=== PATIENT | male | born 1975 | race Caucasian/White ===

== ENCOUNTER → 2016-10-16 | Outpatient (CLI) | payer BC ==
[2016-10-16 09:25] LABS: CH 30.4; CHCM 34.4; HDW 2.98; HGB 17.9 gm/dL (13.0-17.5); MCH 29.5 pg (25.0-35.0); MCHC 33.1 g/dL (31.0-37.0); Mean Platelet Volume 7.5; RBC 6.07 m/uL (4.30-5.90); RDW 13.7 % (11.5-15.5); WBC 7.5 k/uL (3.8-10.6)
[2016-10-16 10:38] LABS: ALT 92 U/L (21-72); AST 46 U/L (17-59); Alkaline Phosphatase 50 U/L (38-126); Anion Gap 11 mmol/L; Blood Urea Nitrogen 20 mg/dL (9-20); Calcium 9.4 mg/dL (8.4-10.2); Carbon Dioxide 25 mmol/L (22-30); Chloride 102 mmol/L (98-107); Cholesterol 207 mg/dL (<200); Glucose 138 mg/dL (74-99); HDL Cholesterol 33 mg/dL (40-60); Non-African American GFR(MDRD) >60 (>60 ml/min/1.73 sqM); Potassium 4.9 mmol/L (3.5-5.1); Sodium 138 mmol/L (137-145); Total Bilirubin 0.6 mg/dL (0.2-1.3); Total Protein 6.8 g/dL (6.3-8.2); Triglycerides 225 mg/dL (<150)
[2016-10-16 11:09] LABS: Prostate Specific Antigen 1.46 ng/mL (0.00-4.00)
== END | disposition home or self-care (01) ==
LOC: LABWHC1 08:05
PROVIDERS: ATTEND Internal Medicine Endocrinology, Diabetes & Metabolism
DX: E11.65 Type 2 diabetes mellitus with hyperglycemia (principal); E29.1 Testicular hypofunction
CPT/HCPCS: 36415; 80053; 80061; 82043; 84153; 84403; 85027

== ENCOUNTER → 2017-03-24 | Outpatient (CLI) | payer BC ==
[2017-03-24 08:43] LABS: ALT 100 U/L (21-72); AST 43 U/L (17-59); Alkaline Phosphatase 53 U/L (38-126); Anion Gap 8 mmol/L; Blood Urea Nitrogen 15 mg/dL (9-20); Calcium 9.2 mg/dL (8.4-10.2); Carbon Dioxide 30 mmol/L (22-30); Chloride 101 mmol/L (98-107); Cholesterol 210 mg/dL (<200); Glucose 188 mg/dL (74-99); HDL Cholesterol 37 mg/dL (40-60); Non-African American GFR(MDRD) >60 (>60 ml/min/1.73 sqM); Potassium 4.7 mmol/L (3.5-5.1); Sodium 139 mmol/L (137-145); Total Bilirubin 0.8 mg/dL (0.2-1.3); Total Protein 6.8 g/dL (6.3-8.2); Triglycerides 240 mg/dL (<150)
== END | disposition home or self-care (01) ==
LOC: LABWHC1 08:01
PROVIDERS: ATTEND Internal Medicine Endocrinology, Diabetes & Metabolism
DX: E11.65 Type 2 diabetes mellitus with hyperglycemia (principal)
CPT/HCPCS: 36415; 80053; 80061

== ENCOUNTER → 2017-09-25 | Outpatient (CLI) | payer BC ==
[2017-09-25 09:26] LABS: ALT 113 U/L (21-72); AST 40 U/L (17-59); Albumin 4.3 g/dL (3.5-5.0); Alkaline Phosphatase 56 U/L (38-126); Anion Gap 10 mmol/L; Blood Urea Nitrogen 21 mg/dL (9-20); Calcium 9.8 mg/dL (8.4-10.2); Carbon Dioxide 32 mmol/L (22-30); Chloride 97 mmol/L (98-107); Cholesterol 185 mg/dL (<200); Glucose 296 mg/dL (74-99); HCT 51.8 % (39.0-53.0); HDL Cholesterol 29 mg/dL (40-60); HGB 17.3 gm/dL (13.0-17.5); LDL Cholesterol,Calculated 103 mg/dL (0-99); MCH 29.8 pg (25.0-35.0); MCHC 33.3 g/dL (31.0-37.0); MCV 89.5 fL (80.0-100.0); Mean Platelet Volume 7.1; Platelet Count 290 k/uL (150-450); Potassium 5.6 mmol/L (3.5-5.1); RBC 5.78 m/uL (4.30-5.90); RDW 13.8 % (11.5-15.5); Sodium 139 mmol/L (137-145); Total Bilirubin 0.6 mg/dL (0.2-1.3); Total Protein 6.8 g/dL (6.3-8.2); Triglycerides 267 mg/dL (<150); WBC 6.3 k/uL (3.8-10.6)
== END | disposition home or self-care (01) ==
LOC: LABWHC1 08:41
PROVIDERS: ATTEND Internal Medicine Endocrinology, Diabetes & Metabolism
DX: E11.65 Type 2 diabetes mellitus with hyperglycemia (principal); E29.1 Testicular hypofunction
CPT/HCPCS: 36415; 80053; 80061; 82043; 82570; 84153; 85027

== ENCOUNTER → 2018-07-13 | Outpatient (CLI) | payer BC ==
[2018-07-13 10:01] LABS: HCT 52.4 % (39.0-53.0); HGB 17.8 gm/dL (13.0-17.5); MCH 30.3 pg (25.0-35.0); MCHC 33.9 g/dL (31.0-37.0); MCV 89.2 fL (80.0-100.0); Mean Platelet Volume 6.8; Platelet Count 312 k/uL (150-450); RBC 5.87 m/uL (4.30-5.90); RDW 14.5 % (11.5-15.5); WBC 6.6 k/uL (3.8-10.6)
[2018-07-13 18:11] LABS: ALT 64 U/L (10-49); AST 36 U/L (14-35); Albumin/Globulin Ratio 2.24 (1.20-2.10); Alkaline Phosphatase 57 U/L (41-126); Calcium 9.7 mg/dL (8.7-10.3); Carbon Dioxide 26.7 mmol/L (21.6-31.8); Chloride 98 mmol/L (96-109); Cholesterol 300 mg/dL (0-200); Globulin 2.1 g/dL (2.1-3.7); Glucose 234 mg/dL (70-110); Sodium 137 mmol/L (135-145); Total Bilirubin 0.5 mg/dL (0.3-1.2); Total Protein 6.8 g/dL (6.2-8.2)
[2018-07-13 20:33] LABS: Hemoglobin A1C 14.6 % (4.0-6.0)
== END ==
LOC: LABWHC1 08:34
PROVIDERS: ATTEND Internal Medicine Endocrinology, Diabetes & Metabolism
DX: E11.65 Type 2 diabetes mellitus with hyperglycemia (principal); E29.1 Testicular hypofunction
CPT/HCPCS: 36415; 80053; 80061; 82043; 82570; 83036; 83721; 84403; 85027

== ENCOUNTER 2018-09-14 13:04 | Observation (INO) | payer BC ==
[2018-09-14] MEDS ORDERED: ASPIRIN 81 MG PO STA (13:14)
[2018-09-14] MEDS ORDERED: NITROGLYCERIN SL TABS 0.4 MG TAB SUBLINGUAL STA (13:31)
--- NOTE | 2018-09-14 13:32 | ED ---
Chest Pain HPI - General Chief Complaint: Chest Pain Stated Complaint: Chest pain,tightness. Arm tingling Time Seen by Provider: 09/14/18 13:14 Source: patient, RN notes reviewed Mode of arrival: wheelchair Limitations: no limitations - History of Present Illness Initial Comments: 43-year-old male presents emergency Department chief complaint chest pain. Patient states this started just prior arrival. Patient states the pain is in the central to left-sided and radiates down his left arm with tingling. Patient states that he is a diabetic, has history of hyperlipidemia, low testosterone, depression. Patient states he felt short of breath and the pain started but he does not feel short breath at this time. Denies any back pain, headache or dizziness. Patient states she had symptoms like this in the past in which she's had elevated troponins. Patient states that he may have had a stress test a few years ago but no prior cardiac cath. - Related Data Home Medications Medication Instructions Recorded Confirmed Desvenlafaxine Succinate [Pristiq 100 mg PO DAILY 04/13/15 09/14/18 ER] Gabapentin [Neurontin] 300 mg PO HS 04/13/15 09/14/18 Testosterone Cypionate 200 mg IM Q14D 04/13/15 09/14/18 [Depo-Testosterone] Atorvastatin [Lipitor] 40 mg PO DAILY 09/14/18 09/14/18 Dapagliflozin Propanediol [Farxiga] 10 mg PO DAILY 09/14/18 09/14/18 Insulin Glargine,Hum.rec.anlog 20 units SQ DAILY 09/14/18 09/14/18 [Touluiso Solsajiar] Lisdexamfetamine Dimesylate 50 mg PO QAM 09/14/18 09/14/18 [Vyvanse] Pramipexole [Mirapex] 0.5 mg PO TID 09/14/18 09/14/18 lamoTRIgine [LaMICtal] 200 mg PO DAILY 09/14/18 09/14/18 sitaGLIPtin PHOS/metFORMIN HCL 1 tab PO BID 09/14/18 09/14/18 [Janumet 50-1,000 mg Tablet] Allergies Allergy/AdvReac Type Severity Reaction Status Date / Time No Known Allergies Allergy Verified 09/14/18 13:43 Review of Systems ROS Statement: Those systems with pertinent positive or pertinent negative responses have been documented in the HPI. ROS Other: All systems not noted in ROS Statement are negative. EKG Findings - EKG Comments: EKG Findings:: EKG performed at 13:19 sinus tachycardia with rate 113 VT 124 QRS 98 QT/QTC 340/466 Past Medical History Past Medical History: Diabetes Mellitus, Hyperlipidemia Additional Past Medical History / Comment(s): RLS; Low testosterone, restless leg syndrome History of Any Multi-Drug Resistant Organisms: None Reported Past Surgical History: Orthopedic Surgery Past Psychological History: Anxiety, Depression Smoking Status: Never smoker Past Alcohol Use History: Occasional Past Drug Use History: None Reported General Exam Limitations: no limitations General appearance: alert, in no apparent distress Head exam: Present: atraumatic, normocephalic, normal inspection Neck exam: Present: normal inspection. Absent: tenderness, meningismus, lymphadenopathy Respiratory exam: Present: normal lung sounds bilaterally. Absent: respiratory distress, wheezes, rales, rhonchi, stridor Cardiovascular Exam: Present: normal rhythm, tachycardia, normal heart sounds. Absent: systolic murmur, diastolic murmur, rubs, gallop, clicks GI/Abdominal exam: Present: soft, normal bowel sounds. Absent: distended, tenderness, guarding, rebound, rigid Course Vital Signs 09/14/18 09/14/18 13:10 14:55 Temperature 98 F Pulse Rate 116 H 109 H Respiratory 18 20 Rate Blood Pressure 143/83 129/80 O2 Sat by Pulse 98 98 Oximetry Chest Pain MDM - MDM 43-year-old male presented for chest pain. Initial troponin is negative EKG does not show an acute changes patient has multiple risk factors including hyperlipidemia, uncontrolled diabetes, family heart history. Patient will be admitted for repeat cardiac enzymes, cardiology evaluation Disposition Clinical Impression: Chest pain Disposition: ADMITTED IP TO THIS HOSP Condition: Fair Referrals: Viky Huerta MD [Primary Care Provider] - 1-2 days
[2018-09-14 14:03] LABS: Basophils # (A) 0.1 k/uL (0-0.2); Basophils % (A) 1 %; Eosinophils # (A) 0.1 k/uL (0-0.7); Eosinophils % (A) 2 %; HCT 49.5 % (39.0-53.0); HGB 16.5 gm/dL (13.0-17.5); Lymphocytes # (A) 1.7 k/uL (1.0-4.8); Lymphocytes % (A) 25 %; MCH 29.9 pg (25.0-35.0); MCHC 33.3 g/dL (31.0-37.0); MCV 89.7 fL (80.0-100.0); Mean Platelet Volume 6.9; Monocytes # (A) 0.3 k/uL (0-1.0); Monocytes % (A) 4 %; Neutrophils # (A) 4.7 k/uL (1.3-7.7); Neutrophils % (A) 66 %; Platelet Count 305 k/uL (150-450); RBC 5.52 m/uL (4.30-5.90)
[2018-09-14 14:10] LABS: INR 0.9 (<1.2); Partial Thromboplastin Time 22.2 sec (22.0-30.0); Prothrombin Time 9.6 sec (9.0-12.0)
[2018-09-14 14:13] LABS: ALT 57 U/L (21-72); AST 27 U/L (17-59); Albumin 4.2 g/dL (3.5-5.0); Alkaline Phosphatase 61 U/L (38-126); Anion Gap 13 mmol/L; Blood Urea Nitrogen 19 mg/dL (9-20); Calcium 9.7 mg/dL (8.4-10.2); Carbon Dioxide 23 mmol/L (22-30); Chloride 102 mmol/L (98-107); Glucose 343 mg/dL (74-99); Potassium 4.6 mmol/L (3.5-5.1); Sodium 138 mmol/L (137-145); Total Bilirubin 0.6 mg/dL (0.2-1.3)
[2018-09-14 14:27] LABS: Creatine Kinase 146 U/L (55-170)
--- NOTE | 2018-09-14 14:29 | XR ---
EXAMINATION TYPE: XR chest 2V DATE OF EXAM: 09/14/2018 COMPARISON: NONE HISTORY: Chest pain down both arms. TECHNIQUE: Frontal and lateral views of the chest are obtained. FINDINGS: There is no focal air space opacity, pleural effusion, or pneumothorax seen. The cardiac silhouette size is within normal limits. The osseous structures are intact. IMPRESSION: No acute process.
[2018-09-14 14:39] LABS: Creatine Kinase MB 2.2 ng/mL (0.0-2.4); Troponin I <0.012 ng/mL (0.000-0.034)
[2018-09-14] MEDS ORDERED: NITROGLYCERIN SL TABS 0.4 MG TAB SUBLINGUAL PRN (15:13)
[2018-09-14] MEDS ORDERED: HEPARIN SODIUM,PORCINE 5,000 UNIT/ML 1 ML VIAL IV ONE (15:13)
[2018-09-14] MEDS ORDERED: HEPARIN SOD,PORK IN 0.45% NACL 25,000 UNIT in 0.45% NACL 1 250ML.BAG IV SCH (15:15)
[2018-09-14] MEDS ORDERED: ACETAMINOPHEN TAB 325 MG TAB PO PRN (15:48)
[2018-09-14] MEDS ORDERED: NALOXONE 0.4 MG/ML 1 ML VIAL IV PRN (15:48)
[2018-09-14] MEDS ORDERED: MORPHINE SULFATE 2 MG/ML SYRINGE IV PRN (15:48)
[2018-09-14 16:15] VITALS: BMI 30.1
--- NOTE | 2018-09-14 16:26 | P.HPIM ---
History of Present Illness H&P Date: 09/14/18 Chief Complaint: Chest pain 43-year-old male with PMH of Alpnf-Dbekfczdn-Frtmz status post ablation at 16, hypertension, uncontrolled diabetes mellitus, hyperlipidemia, low testosterone, restless leg syndrome, anxiety and depression presents the ED for chest pain. Patient states that the chest pain started around 12:30 PM as he was sitting at his desk watching TV. Pain was left-sided and intermittent, lasting for a few minutes at a time. Pain is 10 out of 10 in severity. Patient describes the pain as sharp and stabbing in nature. Patient reported that the pain radiated to the left arm which led to some tingling in his left fingers. He denies any alleviating or aggravating factors. Patient denies any headaches, lower extremity edema, nausea, vomiting, fever, cough, changes in urination or bowel habits. No changes in appetite or weight. Patient does however endorse palpitations and shortness of breath that started with his chest pain. Patient reports previous incidents in 2016, initially found to have elevated troponin which normalized on repeat blood draw, he was told that this was related to his anxiety. 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 Patient reports uncontrolled diabetes, A1c greater than 11 at his [facility] clinic, recently started on insulin. Patient also reports recently being started on Lipitor as his lipid panel was extremely elevated. Patient also reports an impressive family history of early cardiac disease, MIs in the 50s on his mother's side. In the ED, CBC and CMP were unremarkable except for a glucose of 343. Initial troponin was less than 0.012, EKG showing sinus tachycardia. Patient is admitted for chest pain, rule out acute coronary syndrome. He started on heparin drip with cardiology on consult. Review of Systems All systems: negative Past Medical History Past Medical History: Diabetes Mellitus, Hyperlipidemia Additional Past Medical History / Comment(s): RLS; Low testosterone, restless leg syndrome History of Any Multi-Drug Resistant Organisms: None Reported Past Surgical History: Orthopedic Surgery Past Psychological History: Anxiety, Depression Smoking Status: Never smoker Past Alcohol Use History: Occasional Past Drug Use History: None Reported Medications and Allergies Home Medications Medication Instructions Recorded Confirmed Type Desvenlafaxine Succinate [Pristiq 100 mg PO DAILY 04/13/15 09/14/18 History ER] Gabapentin [Neurontin] 300 mg PO HS 04/13/15 09/14/18 History Testosterone Cypionate 200 mg IM Q14D 04/13/15 09/14/18 History [Depo-Testosterone] Atorvastatin [Lipitor] 40 mg PO DAILY 09/14/18 09/14/18 History Dapagliflozin Propanediol [Farxiga] 10 mg PO DAILY 09/14/18 09/14/18 History Insulin Glargine,Hum.rec.anlog 20 units SQ DAILY 09/14/18 09/14/18 History [Toujeo Solostar] Lisdexamfetamine Dimesylate 50 mg PO QAM 09/14/18 09/14/18 History [Vyvanse] Pramipexole [Mirapex] 0.5 mg PO TID 09/14/18 09/14/18 History lamoTRIgine [LaMICtal] 200 mg PO DAILY 09/14/18 09/14/18 History sitaGLIPtin PHOS/metFORMIN HCL 1 tab PO BID 09/14/18 09/14/18 History [Janumet 50-1,000 mg Tablet] Allergies Allergy/AdvReac Type Severity Reaction Status Date / Time No Known Allergies Allergy Verified 09/14/18 13:43 Physical Exam Vitals: Vital Signs Temp Pulse Resp BP Pulse Ox 09/14/18 15:00 105 H 11 L 129/80 96 09/14/18 14:55 109 H 20 129/80 98 09/14/18 14:00 112 H 15 96 09/14/18 13:21 113 H 12 97 09/14/18 13:10 98 F 116 H 18 143/83 98 Intake and Output 09/14/18 09/14/18 09/14/18 06:59 14:59 22:59 Other: Weight 97.522 kg General: [non toxic], [no distress], [appears at stated age] Derm: [warm], [dry] Head: [atraumatic], [normocephalic], [symmetric] Eyes: [EOMI], [no lid lag], [anicteric sclera] Mouth: [no lip lesion], [mucus membranes moist] Cardiovascular: [S1S2 reg], [tachycardia], [positive DP pulse bilateral] Lungs: [CTA bilateral], [no rhonchi, no rales] , [no accessory muscle use] Abdominal: [soft], [ nontender to palpation], [no guarding], [no appreciable organomegaly] Ext: [no gross muscle atrophy], [no edema], [no contractures] Neuro: [no focal neuro deficits] Psych: [Alert], [oriented], [appropriate affect] Results CBC & Chem 7: 09/14/18 13:55 09/14/18 13:55 Labs: Abnormal Lab Results - Last 24 Hours (Table) 09/14/18 Range/Units 13:55 Glucose 343 H (74-99) mg/dL Thrombosis Risk Factor Assmnt - Choose All That Apply Any of the Below Risk Factors Present?: Yes Each Factor Represents 1 point: Age 41-60 years Thrombosis Risk Factor Assessment Total Risk Factor Score: 1 Thrombosis Risk Factor Assessment Level: Low Risk Assessment and Plan Assessment: Assessment and Plan 1. Chest pain: Concerns for ACS with risk factors. Patient is afebrile with no leukocytosis.. Troponin < 0.012 x 1, EKG showing sinus tachycardia. CXR is negative. Pain management with Tylenol, Nitrostat PRN and Morphine 2 mg IV Q4H PRN for breakthrough. Start ASA 325 mg PO QD. Trend 2 Trop/EKG to r/o ACS. Heparin drip pending Cardiology evaluation. Telemetry monitoring. FU Echocardiogram, Cardiology consult 2. Diabetes Mellitus: POC glucose 343. Start Levemir 20 units QHS, ISS. Hypoglycemic precautions. Accuchecks with meals. 3. Hyperlipidemia: Continue ASA 325 mg PO QD and Lipitor 40 mg PO QHS. HEART healthy diet. FU Lipid panel 4. Restless leg syndrome: Stable. Continue Pramipexole 0.5 mg PO TID. 5. Low testosterone: Stable. Continue testosterone biweekly injections. 6. Depression: Stable. Continue Pristiq ER 100 mg PO QD. 7. DVT/GI Prophylaxis: Heparin drip.
[2018-09-14 16:33] LABS: Glucose,Whole Blood 209 mg/dL (75-99)
[2018-09-14] MEDS: PRAMIPEXOLE 0.5 MG TAB PO SCH ×2 (16:37→21:12)
[2018-09-14] MEDS: INSULIN ASPART 100 UNIT/ML 1 ML 10 ML VIAL SQ SCH (16:50)
[2018-09-14] MEDS ORDERED: INSULIN ASPART 100 UNIT/ML 1 ML 10 ML VIAL SQ SCH (17:30)
[2018-09-14 19:55] LABS: Creatine Kinase 107 U/L (55-170)
[2018-09-14 20:09] LABS: Creatine Kinase MB 1.5 ng/mL (0.0-2.4); Troponin I <0.012 ng/mL (0.000-0.034)
[2018-09-14 21:00] LABS: Glucose,Whole Blood 306 mg/dL (75-99)
[2018-09-14] MEDS ORDERED: GABAPENTIN 300 MG CAP PO SCH (21:00)
[2018-09-14] MEDS ORDERED: INSULIN DETEMIR 100 UNIT/ML 10 ML VIAL SQ SCH (21:00)
[2018-09-14] MEDS: HEPARIN SODIUM,PORCINE 5,000 UNIT/ML 1 ML VIAL IV PRN (21:43)
[2018-09-15 03:13] LABS: Cholesterol 148 mg/dL (<200); HDL Cholesterol 33 mg/dL (40-60); LDL Cholesterol,Calculated 74 mg/dL (0-99); Triglycerides 206 mg/dL (<150)
[2018-09-15 03:24] LABS: Creatine Kinase 106 U/L (55-170)
[2018-09-15] MEDS: HEPARIN SODIUM,PORCINE 5,000 UNIT/ML 1 ML VIAL IV PRN (03:24)
[2018-09-15 03:37] LABS: Creatine Kinase MB 1.4 ng/mL (0.0-2.4); Troponin I <0.012 ng/mL (0.000-0.034)
[2018-09-15 06:39] LABS: Glucose,Whole Blood 166 mg/dL (75-99)
[2018-09-15] MEDS: INSULIN ASPART 100 UNIT/ML 1 ML 10 ML VIAL SQ SCH ×3 (08:40→17:28)
[2018-09-15] MEDS ORDERED: ATORVASTATIN 40 MG TAB PO SCH (09:00)
[2018-09-15] MEDS ORDERED: DESVENLAFAXINE SUCCINATE 50 MG TAB.ER.24H PO SCH (09:00)
[2018-09-15] MEDS ORDERED: lamoTRIgine 100 MG TAB PO SCH (09:00)
[2018-09-15] MEDS ORDERED: ASPIRIN 325 MG TAB PO SCH (09:00)
--- NOTE | 2018-09-15 09:51 | P.CRDCN ---
History of Present Illness History of present illness: This is a pleasant 43-year-old male past medical history significant for Ymwqw-Lhunqjqps-Nigtz syndrome status post ablation, diabetes mellitus and dyslipidemia. He denies history of coronary artery disease. 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 We have been asked to see him in consultation for chest discomfort. He states while sitting at his desk yesterday he developed a heavy sensation in the left precordial region with radiation to the left arm and hand. He states he felt tingling in his fingers. He also had mild shortness of breath. No radiation to the back, neck or jaw. He denies dizziness, palpitations, nausea, vomiting or diaphoresis. The symptoms persisted for a couple of minutes and ultimately subsided on her own. Upon arrival to the emergency department he still felt a dull ache in the chest. He was given sublingual nitroglycerin and his discomfort is completely subsided. There is been no return of chest discomfort since admission to the hospital. He states he underwent an ablation for Mydfm-Nojsbspgt-Hbcwy he was 16 years old. He also states he is under a significant amount of stress at work with fear of losing his job as well as having significant financial trouble at home. EKG reveals sinus mechanism with no acute ST or T wave abnormalities noted. Chest x-ray is negative for acute cardiopulmonary process. Laboratory data reviewed, WBC 7, hemoglobin 16.5, platelets 305, sodium 138, potassium 4.6, creatinine 0.72, magnesium 2.0, cardiac enzymes negative 3, LDL 74 and HDL 33. Current cardiac medications include atorvastatin 40 mg daily. He has a negative stress test performed in 2015. At the time of my exam: CONSTITUTIONAL: Denies fever. Denies chills. EYES: Denies blurred vision. Denies vision changes. Denies eye pain. EARS, NOSE, MOUTH & THROAT: Denies headache. Denies sore throat. Denies ear pain. CARDIOVASCULAR: Denies chest pain. Denies shortness of breath. Denies orthopnea. Denies PND. Denies palpitations. RESPIRATORY: Denies cough. GASTROINTESTINAL: Denies abdominal pain. Denies diarrhea. Denies constipation. Denies nausea. Denies vomiting. MUSCULOSKELETAL: Denies myalgias. INTEGUMENTARY: Denies pruitis. Denies rash. NEUROLOGIC: Denies numbness. Denies tingling. Denies weakness. PSYCHIATRIC: Denies anxiety. Denies depression. ENDOCRINE: Denies fatigue. Denies weight change. Denies polydipsia. Denies polyurina. GENITOURINARY: Denies burning, hematuria or urgency with micturation. HEMATOLOGIC: Denies history of anemia. Denies bleeding. Blood pressure 111/72 heart rate 89 afebrile maintaining oxygen saturation on room air GENERAL: This is a 43-year-old male in no apparent distress at the time of my examination. HEENT: Head is atraumatic, normocephalic. Pupils are equal, round. Sclerae anicteric. Conjunctivae are clear. Mucous membranes of the mouth are moist. Neck is supple. There is no jugular venous distention. No carotid bruit is heard. LUNGS: Clear to auscultation no wheezes, rales or rhonchi. No chest wall tenderness is noted on palpation or with deep breathing. HEART: Regular rate and rhythm without murmurs, rubs or gallops. S1 and S2 heard. ABDOMEN: Soft, nontender. Bowel sounds are heard. No organomegaly noted. EXTREMITIES: No evidence of peripheral edema and no calf tenderness noted. VASCULAR: Radial and dorsalis pedis pulses palpated, no evidence of clubbing. NEUROLOGIC: Patient is awake, alert and oriented x3. ASSESSMENT Precordial chest pain, atypical. An acute coronary event has been ruled out with no EKG evidence of ischemia and negative cardiac enzymes. Dyslipidemia, controlled on atorvastatin Diabetes mellitus Obesity, BMI 30 PLAN An acute coronary event has been ruled out with no EKG evidence of ischemia and negative cardiac enzymes. Discontinue heparin infusion and Nitropaste. Obtain 2-D echocardiogram and Doppler study to assess cardiac structure and function. Perform stress echocardiogram to assess for stress-induced cardiac ischemia. If stress test is normal he is stable from a cardiac perspective. Follow-up with Dr. King in 2-3 weeks. Recommend lifestyle modifications such as diet and exercise for weight loss. Thank you kindly for this consultation. Nurse Practitioner note has been reviewed, I agree with a documented findings and plan of care. Patient was seen and examined. Past Medical History Past Medical History: Diabetes Mellitus, Hyperlipidemia Additional Past Medical History / Comment(s): RLS; Low testosterone, restless leg syndrome History of Any Multi-Drug Resistant Organisms: None Reported Past Surgical History: Orthopedic Surgery Past Psychological History: Anxiety, Depression Smoking Status: Never smoker Past Alcohol Use History: Occasional Past Drug Use History: None Reported Medications and Allergies Home Medications Medication Instructions Recorded Confirmed Type Desvenlafaxine Succinate [Pristiq 100 mg PO DAILY 04/13/15 09/14/18 History ER] Gabapentin [Neurontin] 300 mg PO HS 04/13/15 09/14/18 History Testosterone Cypionate 200 mg IM Q14D 04/13/15 09/14/18 History [Depo-Testosterone] Atorvastatin [Lipitor] 40 mg PO DAILY 09/14/18 09/14/18 History Dapagliflozin Propanediol [Farxiga] 10 mg PO DAILY 09/14/18 09/14/18 History Insulin Glargine,Hum.rec.anlog 20 units SQ DAILY 09/14/18 09/14/18 History [Toujeo Solostar] Lisdexamfetamine Dimesylate 50 mg PO QAM 09/14/18 09/14/18 History [Vyvanse] Pramipexole [Mirapex] 0.5 mg PO TID 09/14/18 09/14/18 History lamoTRIgine [LaMICtal] 200 mg PO DAILY 09/14/18 09/14/18 History sitaGLIPtin PHOS/metFORMIN HCL 1 tab PO BID 09/14/18 09/14/18 History [Janumet 50-1,000 mg Tablet] Allergies Allergy/AdvReac Type Severity Reaction Status Date / Time No Known Allergies Allergy Verified 09/14/18 13:43 Physical Exam Vitals: Vital Signs Temp Pulse Pulse Resp BP BP Pulse Ox 09/15/18 07:10 97.6 F 89 18 111/72 97 09/15/18 04:00 98.3 F 83 18 110/70 99 09/14/18 23:48 82 18 09/14/18 23:06 98.2 F 82 18 113/71 95 09/14/18 19:29 98.2 F 98 18 119/78 97 09/14/18 19:20 95 18 09/14/18 16:15 98.5 F 95 18 128/92 97 09/14/18 15:00 105 H 11 L 129/80 96 09/14/18 14:55 109 H 20 129/80 98 09/14/18 14:00 112 H 15 96 09/14/18 13:21 113 H 12 97 09/14/18 13:10 98 F 116 H 18 143/83 98 Intake and Output 09/14/18 09/15/18 09/15/18 22:59 06:59 14:59 Intake Total 872.5 74.994 Balance 872.5 74.994 Intake: Intake, IV Titration 50.5 74.994 Amount Heparin Sod,Pork in 0.45% 50.5 74.994 NaCl 25,000 unit In 0.45 % NaCl 1 250ml.bag @ 10. 26 UNITS/KG/HR 10 mls/hr IV .Q24H [facility] Rx#: [id number] Oral 822 Other: # Voids 1 Weight 92.624 kg Results 09/14/18 13:55 09/14/18 13:55 Cardiac Enzymes 09/14/18 09/14/18 09/14/18 Range/Units 13:55 13:55 19:20 AST 27 (17-59) U/L CK-MB (CK-2) 2.2 1.5 (0.0-2.4) ng/mL Troponin I <0.012 <0.012 (0.000-0.034) ng/mL 09/15/18 Range/Units 02:36 AST (17-59) U/L CK-MB (CK-2) 1.4 (0.0-2.4) ng/mL Troponin I <0.012 (0.000-0.034) ng/mL Coagulation 09/14/18 09/14/18 09/15/18 Range/Units 13:55 19:20 02:36 PT 9.6 (9.0-12.0) sec APTT 22.2 26.7 39.9 H (22.0-30.0) sec Lipids 09/15/18 Range/Units 02:36 Triglycerides 206 H (<150) mg/dL Cholesterol 148 (<200) mg/dL HDL Cholesterol 33 L (40-60) mg/dL CBC 09/14/18 Range/Units 13:55 WBC 7.0 (3.8-10.6) k/uL RBC 5.52 (4.30-5.90) m/uL Hgb 16.5 (13.0-17.5) gm/dL Hct 49.5 (39.0-53.0) % Plt Count 305 (150-450) k/uL Comprehensive Metabolic Panel 09/14/18 Range/Units 13:55 Sodium 138 (137-145) mmol/L Potassium 4.6 (3.5-5.1) mmol/L Chloride 102 (98-107) mmol/L Carbon Dioxide 23 (22-30) mmol/L BUN 19 (9-20) mg/dL Creatinine 0.72 (0.66-1.25) mg/dL Glucose 343 H (74-99) mg/dL Calcium 9.7 (8.4-10.2) mg/dL AST 27 (17-59) U/L ALT 57 (21-72) U/L Alkaline Phosphatase 61 (38-126) U/L Total Protein 7.0 (6.3-8.2) g/dL Albumin 4.2 (3.5-5.0) g/dL Current Medications Generic Name Dose Route Start Last Admin Trade Name Freq PRN Reason Stop Dose Admin Acetaminophen 650 mg 09/14/18 15:48 Tylenol Tab PO Q6HR PRN Mild Pain or Fever > 100.5 Aspirin 325 mg 09/15/18 09:00 Aspirin PO DAILY [facility] Atorvastatin Calcium 40 mg 09/15/18 09:00 Lipitor PO DAILY [facility] Desvenlafaxine Succinate 100 mg 09/15/18 09:00 Pristiq Er PO DAILY [facility] Gabapentin 300 mg 09/14/18 21:00 09/14/18 21:11 Neurontin PO 300 mg HS JOSE Administration Heparin Sodium (Porcine) 0 unit 09/14/18 21:35 09/15/18 03:24 Heparin IV 4,000 unit PER PROTOCOL PRN Administration Low PTT Protocol Heparin Sodium/Sodium Chloride 250 mls @ 10 mls/hr 09/14/18 15:15 09/15/18 03 :24 25,000 unit/ Sodium Chloride IV 16.26 units/kg/hr .Q24H [facility] 15.85 mls/hr Titration Protocol 10.26 UNITS/KG/HR Insulin Aspart 0 unit 09/14/18 17:30 09/14/18 16:50 Novolog SQ 3 unit AC-TID JOSE Administration Protocol Insulin Detemir 20 unit 09/14/18 21:00 09/14/18 21:12 Levemir SQ 20 unit HS JOSE Administration Lamotrigine 200 mg 09/15/18 09:00 Lamictal PO DAILY [facility]SE Morphine Sulfate 2 mg 09/14/18 15:48 Morphine Sulfate (Inj) IV Q4HR PRN Severe Pain Naloxone HCl 0.2 mg 09/14/18 15:48 Narcan IV Q2M PRN Opioid Reversal Nitroglycerin 0.4 mg 09/14/18 15:13 Nitrostat SUBLINGUAL Q5M PRN Chest Pain Lisdexamfetamine 50 mg 09/15/18 09:00 Dimesylate [Vyvanse] PO QAM [facility] Pramipexole Dihydrochloride 0.5 mg 09/14/18 16:00 09/14/18 21:12 Mirapex PO 0.5 mg TID JOSE Administration Intake and Output 09/14/18 09/15/18 09/15/18 22:59 06:59 14:59 Intake Total 872.5 74.994 Balance 872.5 74.994 Intake: Intake, IV Titration 50.5 74.994 Amount Heparin Sod,Pork in 0.45% 50.5 74.994 NaCl 25,000 unit In 0.45 % NaCl 1 250ml.bag @ 10. 26 UNITS/KG/HR 10 mls/hr IV .Q24H [facility] Rx#: [id number] Oral 822 Other: # Voids 1 Weight 92.624 kg 09/14/18 13:55 09/14/18 13:55
[2018-09-15] MEDS: PRAMIPEXOLE 0.5 MG TAB PO SCH ×2 (12:41→18:09)
--- NOTE | 2018-09-15 14:19 | ECHOF ---
Referral Reason:Chest pain MEASUREMENTS -------- HEIGHT: 175.3 cm WEIGHT: 92.5 kg BP: 110/0 RVIDd: 2.3 cm (< 3.3) IVSd: 1.1 cm (0.6 - 1.1) LVIDd: 3.8 cm (3.9 - 5.3) LVPWd: 1.0 cm (0.6 - 1.1) IVSs: 1.2 cm LVIDs: 2.6 cm LVPWs: 1.2 cm LAESV Index (A-L): 13.31 ml/m Ao Diam: 3.5 cm (2.0 - 3.7) AV Cusp: 2.5 cm (1.5 - 2.6) LA Diam: 2.6 cm (2.7 - 3.8) MV EXCURSION: 17.614 mm (> 18.000) MV EF SLOPE: 161 mm/s (70 - 150) EPSS: 0.8 cm MV E Pelon: 0.57 m/s MV DecT: 228 ms MV A Pelon: 0.85 m/s MV E/A Ratio: 0.67 RAP: 5.00 mmHg RVSP: 6.54 mmHg FINDINGS -------- Sinus rhythm. This was a technically good study. The left ventricular size is normal. Left ventricular wall thickness is normal. Overall left vent ricular systolic function is low-normal with, an EF between 50 - 55 %. The right ventricle is normal in size and function. The left atrium is normal in size. The right atrium is normal in size. xx ml of Lumason was utilized for enhancement of images. The aortic valve is trileaflet, and appears structurally normal. No aortic stenosis or regurgitation. Mild mitral annular calcification present. Mild mitral regurgitation is present. Mild tricuspid regurgitation present. The right ventricular systolic pressure, as measured by Doppl er, is 6.54mmHg. Pulmonic valve appears structurally normal. The aortic root size is normal. Normal inferior vena cava with normal inspiratory collapse consistent with estimated right atrial pre ssure of 5 mmHg. The pericardium is normal. CONCLUSIONS -------- 1. Sinus rhythm. 2. This was a technically good study. 3. The left ventricular size is normal. 4. Left ventricular wall thickness is normal. 5. Overall left ventricular systolic function is low-normal with, an EF between 50 - 55 %. 6. The right ventricle is normal in size and function. 7. The left atrium is normal in size. 8. The right atrium is normal in size. 9. xx ml of Lumason was utilized for enhancement of images. 10. The aortic valve is trileaflet, and appears structurally normal. No aortic stenosis or regurgitat ion. 11. Mild mitral annular calcification present. 12. Mild mitral regurgitation is present. 13. Mild tricuspid regurgitation present. 14. The right ventricular systolic pressure, as measured by Doppler, is 6.54mmHg. 15. Pulmonic valve appears structurally normal. 16. The aortic root size is normal. 17. Normal inferior vena cava with normal inspiratory collapse consistent with estimated right atrial pressure of 5 mmHg. 18. The pericardium is normal. NIGHT PATROL INSPECTOR: Laverne Martinez RDCS
[2018-09-15 14:26] LABS: Glucose,Whole Blood 157 mg/dL (75-99)
[2018-09-15 16:45] LABS: Glucose,Whole Blood 293 mg/dL (75-99)
--- NOTE | 2018-09-15 19:01 | P.STRESS ---
- Stress Test Note Stress Test Results/Findings: Exam Performed: stress echo exercise Exam Date: 09/15/18 Reason for Exam: Chest Pain Height: 5 ft 9 in Weight: 92.624 kg Protocol: Stress Echo Stage: 3 Duration of Exercise: 10:19 Resting Heart Rate: 91 Resting Blood Pressure: 109/79 Maximum Achieved Heart Rate: 156 Maximum Achieved Blood Pressure: 156/73 85% PMHR: 149 100% PMHR: 175 METS: 11.5 Technologist Comment: Stress Test Results/Findings: This is a 43-year-old gentleman was admitted to the hospital with chest pain and shortness of breath. Patient has history of diabetes, hypercholesterolemia and family history ischemic heart disease. Stress data: Baseline EKG showed sinus rhythm with normal UT interval and QRS duration. Blood pressure at rest is 109/79% of 91. Patient walked on the Yariel protocol for 10 minutes and 19 seconds achieving a maximal heart rate 156 , blood pressure 156/73. EKGs taken during and after exercise did not reveal any changes to sized ischemia. Echo data: Baseline EKG showed a normal LV function. Exercise echo images showed augmentation of wall motion and thickening in all the segments. This study was done with contrast. Final impression #1. Negative stress test #2. Negative stress echo
--- NOTE | 2018-09-15 19:04 | P.DS ---
Providers Date of admission: 09/14/18 15:19 Expected date of discharge: 09/15/18 Attending physician: Mona Odonnell MD Consults: 09/14/18 15:13 Consult Physician Urgent Consulting Provider: Edy Cade Consult Reason/Comments: chest pain Do you want consulting provider notified?: Yes Primary care physician: Viky Huerta MD - Discharge Diagnosis(es) (1) Diabetes mellitus Current Visit: Yes Status: Acute (2) Hyperlipidemia Current Visit: Yes Status: Acute (3) RLS (restless legs syndrome) Current Visit: Yes Status: Acute (4) Low testosterone Current Visit: Yes Status: Acute (5) Depression with anxiety Current Visit: Yes Status: Acute (6) Chest pain Current Visit: Yes Status: Acute Hospital Course: 43-year-old male with PMH of Alcyd-Ydxrvtvde-Fizov status post ablation at 16, hypertension, uncontrolled diabetes mellitus, hyperlipidemia, low testosterone, restless leg syndrome, anxiety and depression presents the ED for chest pain. Patient states that the chest pain started around 12:30 PM as he was sitting at his desk watching TV. Pain was left-sided and intermittent, lasting for a few minutes at a time. Pain is 10 out of 10 in severity. Patient describes the pain as sharp and stabbing in nature. Patient reported that the pain radiated to the left arm which led to some tingling in his left fingers. He denies any alleviating or aggravating factors. Patient denies any headaches, lower extremity edema, nausea, vomiting, fever, cough, changes in urination or bowel habits. No changes in appetite or weight. Patient does however endorse palpitations and shortness of breath that started with his chest pain. Patient reports previous incidents in 2016, initially found to have elevated troponin which normalized on repeat blood draw, he was told that this was related to his anxiety. 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 Patient reports uncontrolled diabetes, A1c greater than 11 at his [facility] clinic, recently started on insulin. Patient also reports recently being started on Lipitor as his lipid panel was extremely elevated. Patient also reports an impressive family history of early cardiac disease, MIs in the 50s on his mother's side. In the ED, CBC and CMP were unremarkable except for a glucose of 343. Patient is admitted for chest pain, rule out acute coronary syndrome. He started on heparin drip with cardiology on consult. Initial troponin was less than 0.0123, EKG showing sinus tachycardia. Cardiology was consulted and recommended discontinuing the heparin drip and obtaining a stress test. Patient was seen and examined prior to discharge. No acute events overnight. Patient reports complete resolution of his chest pain. No shortness of breath or palpitations. Patient is looking for to going home. General: [non toxic], [no distress], [appears at stated age] Derm: [warm], [dry] Head: [atraumatic], [normocephalic], [symmetric] Eyes: [EOMI], [no lid lag], [anicteric sclera] Mouth: [no lip lesion], [mucus membranes moist] Cardiovascular: [S1S2 reg], [tachycardia], [positive DP pulse bilateral] Lungs: [CTA bilateral], [no rhonchi, no rales] , [no accessory muscle use] Abdominal: [soft], [ nontender to palpation], [no guarding], [no appreciable organomegaly] Ext: [no gross muscle atrophy], [no edema], [no contractures] Neuro: [no focal neuro deficits] Psych: [Alert], [oriented], [appropriate affect] Assessment and Plan 1. Chest pain: Concerns for ACS with risk factors. Patient is afebrile with no leukocytosis.. Troponin < 0.012 x 3, EKG showing sinus tachycardia. CXR is negative. Pain management with Tylenol, Nitrostat PRN and Morphine 2 mg IV Q4H PRN for breakthrough. Start ASA 325 mg PO QD. Heparin drip discontinued by Cardiology. Telemetry monitoring. Echo shows EF 50-55% with normal wall motion. Stress test negative. Cardiology cleared for discharge. 2. Diabetes Mellitus: POC glucose 166. Start Levemir 20 units QHS, ISS. Hypoglycemic precautions. Accuchecks with meals. 3. Hyperlipidemia: Continue ASA 325 mg PO QD and Lipitor 40 mg PO QHS. HEART healthy diet. Lipid panel shows T. Chol 148 LDL 77 HDL 33 and TG 206. 4. Restless leg syndrome: Stable. Continue Pramipexole 0.5 mg PO TID. 5. Low testosterone: Stable. Continue testosterone biweekly injections. 6. Depression: Stable. Continue Pristiq ER 100 mg PO QD. 7. DVT/GI Prophylaxis: Early mobilization. Pertinent Studies: Chest x-ray Echocardiogram Stress test Patient Condition at Discharge: Stable Plan - Discharge Summary Discharge Rx Participant: No New Discharge Prescriptions: Continue Gabapentin [Neurontin] 300 mg PO HS Testosterone Cypionate [Depo-Testosterone] 200 mg IM Q14D Desvenlafaxine Succinate [Pristiq] 100 mg PO DAILY sitaGLIPtin PHOS/metFORMIN HCL [Janumet 50-1,000 mg Tablet] 1 tab PO BID lamoTRIgine [LaMICtal] 200 mg PO DAILY Insulin Glargine,Hum.rec.anlog [Toujeo Solostar] 20 units SQ DAILY Atorvastatin [Lipitor] 40 mg PO DAILY Pramipexole [Mirapex] 0.5 mg PO TID Lisdexamfetamine Dimesylate [Vyvanse] 50 mg PO QAM Dapagliflozin Propanediol [Farxiga] 10 mg PO DAILY Discharge Medication List Desvenlafaxine Succinate [Pristiq] 100 mg PO DAILY 04/13/15 [History] Gabapentin [Neurontin] 300 mg PO HS 04/13/15 [History] Testosterone Cypionate [Depo-Testosterone] 200 mg IM Q14D 04/13/15 [History] Atorvastatin [Lipitor] 40 mg PO DAILY 09/14/18 [History] Dapagliflozin Propanediol [Farxiga] 10 mg PO DAILY 09/14/18 [History] Insulin Glargine,Hum.rec.anlog [Toujeo Solostar] 20 units SQ DAILY 09/14/18 [ History] Lisdexamfetamine Dimesylate [Vyvanse] 50 mg PO QAM 09/14/18 [History] Pramipexole [Mirapex] 0.5 mg PO TID 09/14/18 [History] lamoTRIgine [LaMICtal] 200 mg PO DAILY 09/14/18 [History] sitaGLIPtin PHOS/metFORMIN HCL [Janumet 50-1,000 mg Tablet] 1 tab PO BID [History] Follow up Appointment(s)/Referral(s): Viky Huerta MD [Primary Care Provider] - 1-2 days (PLEASE CALL OFFICE TOMORROW FOR HOSPITAL FOLLOW UP APPOINTMENT) Nadya Jiménez MD [STAFF PHYSICIAN] - 1 Week Dane King MD [STAFF PHYSICIAN] - 2 Weeks Activity/Diet/Wound Care/Special Instructions: Diet; Diabetic Please follow-up with your primary care provider within 1-2 days of discharge. Please follow-up with your dude wrangler within 2 weeks of discharge. Please take all medications as advised. TAKE BLOOD SUGARS AT LEAST TWICE A DAY AND RECORD. TAKE TO DR. JIMÉNEZ FOR FURTHER ORDERS RETURN TO ER IF YOU DEVELOP CHEST PAIN, SHORTNESS OF BREATH, NAUSEA, DIZZINESS, PAIN DOWN ARM/UP JAW Discharge Disposition: HOME SELF-CARE
[2018-09-15 19:16] VITALS: BP 112/76; PULSE 89; RESP 16; TEMP 98.3
--- NOTE | 2018-09-23 09:32 | ECHOS ---
Stress Test Results/Findings: Exam Performed: stress echo exercise Exam Date: 09/15/18 Reason for Exam: Chest Pain Height: 5 ft 9 in Weight: 92.624 kg Protocol: Stress Echo Stage: 3 Duration of Exercise: 10:19 Resting Heart Rate: 91 Resting Blood Pressure: 109/79 Maximum Achieved Heart Rate: 156 Maximum Achieved Blood Pressure: 156/73 85% PMHR: 149 100% PMHR: 175 METS: 11.5 Technologist Comment: Stress Test Results/Findings: This is a 43-year-old gentleman was admitted to the hospital with chest pain and shortness of breath. Patient has history of diabetes, hypercholesterolemia and family history ischemic heart disease. Stress data: Baseline EKG showed sinus rhythm with normal MI interval and QRS duration. Blood pressure at rest is 109/79% of 91. Patient walked on the Yariel protocol for 10 minutes and 19 seconds achieving a maximal heart rate 156 , blood pressure 156/73. EKGs taken during and after exercise did not reveal any changes to sized ischemia. Echo data: Baseline EKG showed a normal LV function. Exercise echo images showed augmentation of wall motion and thickening in all the segments. This study was done with contrast. Final impression #1. Negative stress test #2. Negative stress echo MTDD
== END 2018-09-15 19:20 | disposition home or self-care (01) ==
LOC: EC 13:04 → 1SOBS 15:19
PROVIDERS: ADMIT Family Medicine; ATTEND Family Medicine
DX: R07.89 Other chest pain (principal); E11.9 Type 2 diabetes mellitus without complications; G25.81 Restless legs syndrome; I10 Essential (primary) hypertension; E29.1 Testicular hypofunction; E78.5 Hyperlipidemia, unspecified; F41.8 Other specified anxiety disorders; Z68.30 Body mass index [BMI] 30.0-30.9, adult; E66.9 Obesity, unspecified; Z79.899 Other long term (current) drug therapy; Z79.4 Long term (current) use of insulin; Z82.49 Family history of ischemic heart disease and other diseases of the circulatory system
CPT/HCPCS: 96365; 96366 ×2; 96376 ×2; 99285; 36415; 93005; 93306; 93351; 80061; 80053; 82550 ×2; 82553 ×2; 83735; 84484 ×2; 85025; 85610; 85730 ×2; 71046; G0378 ×2; J1644 ×3; Q9950

== ENCOUNTER → 2018-12-03 | Outpatient (CLI) | payer BC ==
[2018-12-03 09:30] LABS: HCT 51.2 % (39.0-53.0); HGB 16.8 gm/dL (13.0-17.5); MCH 29.4 pg (25.0-35.0); MCHC 32.8 g/dL (31.0-37.0); MCV 89.8 fL (80.0-100.0); Mean Platelet Volume 6.6; Platelet Count 366 k/uL (150-450); RBC 5.71 m/uL (4.30-5.90); RDW 13.5 % (11.5-15.5); WBC 7.3 k/uL (3.8-10.6)
[2018-12-03 17:37] LABS: ALT 61 U/L (10-49); AST 37 U/L (14-35); Albumin/Globulin Ratio 2.15 (1.60-3.17); Alkaline Phosphatase 64 U/L (41-126); Calcium 9.3 mg/dL (8.7-10.3); Chloride 102 mmol/L (96-109); Cholesterol 172 mg/dL (0-200); Glucose 226 mg/dL (70-110); Potassium 4.4 mmol/L (3.5-5.5); Sodium 139 mmol/L (135-145); Total Bilirubin 0.4 mg/dL (0.2-1.2); Total Protein 6.3 g/dL (6.2-8.2)
[2018-12-03 20:21] LABS: Hemoglobin A1C 15.1 % (4.0-6.0)
== END | disposition home or self-care (01) ==
LOC: LABWHC1 08:30
PROVIDERS: ATTEND Internal Medicine Endocrinology, Diabetes & Metabolism
DX: E11.65 Type 2 diabetes mellitus with hyperglycemia (principal); E29.1 Testicular hypofunction; Z12.5 Encounter for screening for malignant neoplasm of prostate
CPT/HCPCS: 80061; 80053; 84443; 85027; 84403; 82043; 82570; 83036; 36415; G0103; 83721